=== PATIENT | female | born 1940 | race Caucasian/White ===

== ENCOUNTER → 2017-02-08 | Outpatient (CLI) | payer MEDICARE ==
[2017-02-08 11:03] LABS: BILIRUBIN,URINE NEGATIVE (NEG); GLUCOSE,URINE NEGATIVE (NEG); NITRITE,URINE NEGATIVE (NEG); PH,URINE 6.5; PROTEIN,URINE NEGATIVE (NEG-TRACE); UROBILINOGEN,URINE 0.2 mg/dL (0.2 mg/dL)
[2017-02-08 11:13] LABS: RBC,URINE 0 /HPF (0-2)
[2017-02-08 11:14] LABS: BACTERIA,URINE MODERATE /HPF (0-FEW); SQUAMOUS EPITHELIAL CELL,UR OCC /LPF
== END | disposition home or self-care (01) ==
LOC: SPEC 10:49
PROVIDERS: ATTEND Internal Medicine
DX: N39.0 Urinary tract infection, site not specified (principal); R62.7 Adult failure to thrive; R55 Syncope and collapse
CPT/HCPCS: 81001; 87086

== ENCOUNTER 2019-12-27 18:56 | Emergency (ER) | payer BC, MEDICARE ==
[~2019-12-27] VITALS: Ht 149.9 cm; Wt 45.0 kg
--- NOTE | 2019-12-27 19:10 | PHYS DOC ---
Adult General Chief Complaint Chief Complaint: AMS HPI HPI Patient is a 79 year old female who is brought to the ER by EMS secondary to altered mental status and decreased responsiveness. The patient lives in an apartment by herself and was last visited by her family 2 days ago at which time she was normal. He had not heard from her so they went to check on her this evening and she was altered. She has no lateralizing neurologic deficits. Patient's vital signs have been stable for EMS. The patient is unable to communicate at this time due to altered mentation. Review of Systems Review of Systems Unable to obtain due to clinical condition Current Medications Current Medications Current Medications Medications (Trade) Dose Ordered Sig/Bailey Start Time Stop Time Status Last Admin Dose Admin Piperacillin Sod/ Tazobactam Sod 3.375 gm/Sodium Chloride 50 ml @ 100 mls/hr 1X ONCE 12/27/19 20:00 12/27/19 20:29 DC 12/27/19 20:40 100 MLS/HR Sodium Chloride 1,000 ml @ 1,000 mls/hr 1X ONCE 12/27/19 19:15 12/27/19 20:14 DC 12/27/19 19:45 1,000 MLS/HR Allergies Allergies Allergies Coded Allergies Type Severity Reaction Last Updated Verified codeine Allergy Unknown 12/27/19 Yes Physical Exam Physical Exam Constitutional: Frail, lying in bed in no acute distress. HENT: Normocephalic, atraumatic, bilateral external ears normal, lips dry, no oral exudates, nose normal. [] Eyes: PERRLA, EOMI, conjunctiva normal, no discharge. [] Neck: Normal range of motion, no tenderness, supple, no stridor. [] Cardiovascular:Heart rate regular rhythm, no murmur [] Lungs & Thorax: Bilateral breath sounds clear to auscultation [] Abdomen: Bowel sounds normal, soft, no tenderness, no masses, no pulsatile masses. [] Skin: Cool, extremities are slightly bluish Extremities: No edema noted, no deformity, mild cyanosis at the feet Neurologic: No focal deficits noted Current Patient Data Vital Signs Vital Signs Date Time Temp Pulse Resp B/P (MAP) Pulse Ox O2 Delivery O2 Flow Rate FiO2 12/27/19 18:56 95.3 59 16 149/84 (105) 95 Room Air 95.3 Lab Values Laboratory Tests Test 12/27/19 19:05 12/27/19 19:22 12/27/19 19:33 Urine Collection Type U cath Urine Color Yellow Urine Clarity Cloudy Urine pH 5.5 Urine Specific Douglas 1.010 Urine Protein 100 mg/dL (NEG-TRACE) Urine Glucose (UA) Negative mg/dL (NEG) Urine Ketones (Stick) 15 mg/dL (NEG) Urine Blood Large (NEG) Urine Nitrite Negative (NEG) Urine Bilirubin Negative (NEG) Urine Urobilinogen Dipstick 0.2 mg/dL (0.2 mg/dL) Urine Leukocyte Esterase Moderate (NEG) Urine RBC 20-40 /HPF (0-2) Urine WBC Tntc /HPF (0-4) Urine Squamous Epithelial Cells Occ /LPF Urine Bacteria Many /HPF (0-FEW) Urine Mucus Slight /LPF Urine Opiates Screen Neg (NEG) Urine Methadone Screen Neg (NEG) Urine Barbiturates Neg (NEG) Urine Phencyclidine Screen Neg (NEG) Urine Amphetamine/Methamphetamine Neg (NEG) Urine Benzodiazepines Screen Neg (NEG) Urine Cocaine Screen Neg (NEG) Urine Cannabinoids Screen Neg (NEG) Urine Ethyl Alcohol Neg (NEG) White Blood Count 13.2 x10^3/uL (4.0-11.0) H Red Blood Count 4.76 x10^6/uL (3.50-5.40) Hemoglobin 15.6 g/dL (12.0-15.5) H Hematocrit 45.7 % (36.0-47.0) Mean Corpuscular Volume 96 fL (79-100) Mean Corpuscular Hemoglobin 33 pg (25-35) Mean Corpuscular Hemoglobin Concent 34 g/dL (31-37) Red Cell Distribution Width 13.2 % (11.5-14.5) Platelet Count 210 x10^3/uL (140-400) Neutrophils (%) (Auto) 87 % (31-73) H Lymphocytes (%) (Auto) 7 % (24-48) L Monocytes (%) (Auto) 7 % (0-9) Eosinophils (%) (Auto) 0 % (0-3) Basophils (%) (Auto) 0 % (0-3) Neutrophils # (Auto) 11.4 x10^3/uL (1.8-7.7) H Lymphocytes # (Auto) 0.9 x10^3/uL (1.0-4.8) L Monocytes # (Auto) 0.9 x10^3/uL (0.0-1.1) Eosinophils # (Auto) 0.0 x10^3/uL (0.0-0.7) Basophils # (Auto) 0.0 x10^3/uL (0.0-0.2) Segmented Neutrophils % 89 % (35-66) H Band Neutrophils % 2 % (0-9) Lymphocytes % 7 % (24-48) L Monocytes % 2 % (0-10) Platelet Estimate Adequate (ADEQUATE) Sodium Level 132 mmol/L (136-145) L Potassium Level 3.7 mmol/L (3.5-5.1) Chloride Level 90 mmol/L (98-107) L Carbon Dioxide Level 23 mmol/L (21-32) Anion Gap 19 (6-14) H Blood Urea Nitrogen 12 mg/dL (7-20) Creatinine 0.8 mg/dL (0.6-1.0) Estimated GFR (Cockcroft-Gault) 69.0 BUN/Creatinine Ratio 15 (6-20) Glucose Level 139 mg/dL (70-99) H Lactic Acid Level 3.5 mmol/L (0.4-2.0) H Calcium Level 9.7 mg/dL (8.5-10.1) Total Bilirubin 2.4 mg/dL (0.2-1.0) H Aspartate Amino Transferase (AST) 24 U/L (15-37) Alanine Aminotransferase (ALT) 13 U/L (14-59) L Alkaline Phosphatase 119 U/L (46-116) H Creatine Kinase 318 U/L (26-192) H Myoglobin 935 ng/mL (9-82) H Troponin I Quantitative < 0.017 ng/mL (0.000-0.055) RI-Tgm-X-Type Natriuretic Peptide 3637 pg/mL (0-449) H Total Protein 9.2 g/dL (6.4-8.2) H Albumin 4.8 g/dL (3.4-5.0) Albumin/Globulin Ratio 1.1 (1.0-1.7) Thyroid Stimulating Hormone (TSH) 1.468 uIU/mL (0.358-3.74) Influenza Type A Antigen Negative (NEGATIVE) Influenza Type B Antigen Negative (NEGATIVE) Laboratory Tests 12/27/19 19:22 Laboratory Tests 12/27/19 19:22 EKG EKG EKG shows sinus rhythm with a heart rate of [address] changes.[] Radiology/Procedures Radiology/Procedures CHEST AP ONLY Clinical History: Technique: AP view of the chest was obtained at 12/27/2019 7:33 PM. Comparison: None. Findings: The heart is moderately enlarged.. The pulmonary vasculature is normal. There is hazy opacity in the left lung base and obscuration of left hemidiaphragm. There is increased reticular opacities of the lungs. Impression: 1. Reticular opacities likely chronic pulmonary fibrosis. 2. Left lower lobe infiltrate could be pneumonia. 3. Moderate cardiomegaly. CT scan of the head without contrast 12/27/2019 Clinical History: Altered mental status. Technique: Unenhanced, contiguous, 5 mm axial sections were obtained through the head. One or more of the following individualized dose reduction techniques were utilized for this study: 1. Automated exposure control. 2. Adjustment of the mA and/or kV according to patient size. 3. Use of iterative reconstruction technique. Findings: No previous studies available for comparison. There is generalized parenchymal atrophy. Areas of decreased attenuation are seen within the periventricular and subcortical white matter of both cerebral hemispheres consistent with areas of small vessel ischemic disease. No acute parenchymal abnormality is seen. No extra-axial fluid collection is noted. No skull fracture is seen. Impression: No acute intracranial abnormality is seen.[] Course & Med Decision Making Course & Med Decision Making Pertinent Labs and Imaging studies reviewed. (See chart for details) 1908: This is seen for altered mental status. She is cool by core temperature so we will place warm blankets on her. We'll get a CT scan of her head and a chest x-ray and a septic workup. We'll initiate 2 L normal saline bolus. Hold off on IV antibiotics at this time. 2057: This patient is workup is completed this time and she appears to have a urinary tract infection along with pneumonia. She has been given 3.375 g of Zosyn and will add an additional 1 g of vancomycin. Patient has received 2 L of IV fluids. Her vital signs remained stable. Patient's family requests transfer to as that is where the patient receives her care normally. We'll arrange for transfer. Patient's diagnosis includes UTI, pneumonia, altered mental status, sepsis. Dragon Disclaimer Dragon Disclaimer This electronic medical record was generated, in whole or in part, using a voice recognition dictation system. Departure Departure Impression: Primary Impression: UTI (urinary tract infection) Additional Impressions: Community acquired pneumonia Sepsis Altered mental status Disposition: 05 TRANSFER OTHER (Family Request transfer to ) Condition: STABLE Referrals: UNKNOWN PCP NAME (PCP) Problem Qualifiers PHYLLIS CURIEL DO Dec 27, 2019 19:10
[2019-12-27] MEDS ORDERED: IV NORMAL SALINE 1000ML BAG 1,000 ML IV ONE ×2 (19:15)
[2019-12-27 19:39] LABS: BILIRUBIN,URINE NEGATIVE (NEG); CLARITY,URINE CLOUDY; COLOR,URINE YELLOW; NITRITE,URINE NEGATIVE (NEG); PH,URINE 5.5; PROTEIN,URINE 100 mg/dL (NEG-TRACE); UROBILINOGEN,URINE 0.2 mg/dL (0.2 mg/dL)
[2019-12-27 19:40] LABS: BASO % 0 % (0-3); EOS % 0 % (0-3); HEMATOCRIT 45.7 % (36.0-47.0); HEMOGLOBIN 15.6 g/dL (12.0-15.5); LYMPH # 0.9 x10^3/uL (1.0-4.8); LYMPH % 7 % (24-48); MEAN CORPUSCULAR HEMOGLOBIN 33 pg (25-35); MEAN CORPUSCULAR HGB CONC 34 g/dL (31-37); MEAN CORPUSCULAR VOLUME 96 fL (79-100); MONO # 0.9 x10^3/uL (0.0-1.1); MONO % 7 % (0-9); NEUT # 11.4 x10^3/uL (1.8-7.7); NEUT % 87 % (31-73); PLATELET COUNT 210 x10^3/uL (140-400); RED BLOOD COUNT 4.76 x10^6/uL (3.50-5.40); RED CELL DISTRIBUTION WIDTH 13.2 % (11.5-14.5); WHITE BLOOD COUNT 13.2 x10^3/uL (4.0-11.0)
[2019-12-27 19:46] LABS: AMPHETAMINE/METHAMPHETAMINE NEG (NEG); BARBITURATES NEG (NEG); BENZODIAZEPINES NEG (NEG); CANNABINOIDS NEG (NEG); COCAINE NEG (NEG); METHADONE NEG (NEG); OPIATES NEG (NEG); PHENCYCLIDINE NEG (NEG)
[2019-12-27 19:48] LABS: BACTERIA,URINE MANY /HPF (0-FEW); RBC,URINE 20-40 /HPF (0-2); SQUAMOUS EPITHELIAL CELL,UR OCC /LPF; WBC,URINE TNTC /HPF (0-4)
--- NOTE | 2019-12-27 19:56 | RAD ---
CHEST AP ONLY Clinical History: Technique: AP view of the chest was obtained at 12/27/2019 7:33 PM. Comparison: None. Findings: The heart is moderately enlarged.. The pulmonary vasculature is normal. There is hazy opacity in the left lung base and obscuration of left hemidiaphragm. There is increased reticular opacities of the lungs. Impression: 1. Reticular opacities likely chronic pulmonary fibrosis. 2. Left lower lobe infiltrate could be pneumonia. 3. Moderate cardiomegaly. Electronically signed by: Daryl Templeton III, MD (12/27/2019 7:53 PM) [id number]
[2019-12-27] MEDS ORDERED: PIPERACILLIN/TAZOBACTAM 3.375 GM in IV NORMAL SALINE 50ML 50 ML IV ONE (20:00)
--- NOTE | 2019-12-27 20:00 | RAD ---
CT scan of the head without contrast 12/27/2019 Clinical History: Altered mental status. Technique: Unenhanced, contiguous, 5 mm axial sections were obtained through the head. One or more of the following individualized dose reduction techniques were utilized for this study: 1. Automated exposure control. 2. Adjustment of the mA and/or kV according to patient size. 3. Use of iterative reconstruction technique. Findings: No previous studies available for comparison. There is generalized parenchymal atrophy. Areas of decreased attenuation are seen within the periventricular and subcortical white matter of both cerebral hemispheres consistent with areas of small vessel ischemic disease. No acute parenchymal abnormality is seen. No extra-axial fluid collection is noted. No skull fracture is seen. Impression: No acute intracranial abnormality is seen. Electronically signed by: Adelfo Warner MD (12/27/2019 7:57 PM) [id number]
[2019-12-27 20:04] LABS: CALCIUM 9.7 mg/dL (8.5-10.1); CREATININE 0.8 mg/dL (0.6-1.0); POTASSIUM 3.7 mmol/L (3.5-5.1)
[2019-12-27 20:08] LABS: % BANDS 2 % (0-9); % LYMPHS 7 % (24-48); % MONOS 2 % (0-10); % SEGS 89 % (35-66); PLT ESTIMATE ADEQUATE (ADEQUATE)
[2019-12-27 20:15] LABS: INFLUENZA A PATIENT NEGATIVE (NEGATIVE); INFLUENZA B PATIENT NEGATIVE (NEGATIVE)
[2019-12-27 20:31] LABS: ALBUMIN 4.8 g/dL (3.4-5.0); ALBUMIN/GLOBULIN RATIO 1.1 (1.0-1.7); TOTAL BILIRUBIN 2.4 mg/dL (0.2-1.0); TOTAL PROTEIN 9.2 g/dL (6.4-8.2)
[2019-12-27] MEDS ORDERED: VANCOMYCIN 1GM IVPB FOR OMNI 250 ML IV ONE (21:00)
[2019-12-27 21:54] VITALS: BP 103/57
--- NOTE | 2019-12-28 03:26 | EKG ---
[facility] [address] [place] [address] Test Date: 2019-12-27 Test Time: 18:56:32 Pat Name: DEBRA KANG Department: Room: Gender: F Downstairs Maid: : 1940 Requested By: PHYLLIS CURIEL Order Number: [id number] Reading MD: Measurements Intervals [place] Rate: 55 P: 0 KS: 186 QRS: 65 QRSD: 240 T: 0 QT: 580 QTc: 558 Interpretive Statements SINUS RHYTHM LOW LIMB LEAD VOLTAGE RIGHT BUNDLE BRANCH BLOCK QRS(T) CONTOUR ABNORMALITY CONSISTENT WITH ANTEROSEPTAL INFARCT AGE UNDETERMINED ABNORMAL ECG RI6.01 No previous ECG available for comparison
== END 2019-12-27 23:00 | disposition short-term general hospital (02) ==
LOC: ER 18:56
DX: A41.9 Sepsis, unspecified organism (principal); J18.9 Pneumonia, unspecified organism; N39.0 Urinary tract infection, site not specified; R41.82 Altered mental status, unspecified; Z88.5 Allergy status to narcotic agent
CPT/HCPCS: 36415; 51701; 70450; 71045; 80053; 80307; 81001; 82550; 83605; 83874; 83880; 84443; 84484; 85007; 85025; 87040; 87086; 87804; 93005; 96361; 96365; 96366; 96367; 99285; J2543; J3370; J7030; 87186